=== PATIENT | male | born 1995 | race Two or more races ===

== ENCOUNTER 2018-10-06 18:33 | Emergency (ER) | payer OTHER ==
[~2018-10-06] VITALS: Ht 152.4 cm; Wt 72.6 kg
[~2018-10-06 18:33] MED LIST: AMOXICILLIN500 M1
== END 2018-10-06 20:44 | disposition home or self-care (01) ==
LOC: ER 18:33
DX: R53.81 Other malaise (principal); F32.89 Other specified depressive episodes; Z73.3 Stress, not elsewhere classified